=== PATIENT | male | born 1965 | race Caucasian/White ===

== ENCOUNTER 2018-01-24 11:51 | Observation (INO) | payer MEDICAID, OTHER ==
[2018-01-24 12:28] LABS: ADD MAN DIFF? NO
[2018-01-24 12:29] LABS: BASOPHILS % 0.8 % (0.0-2.0); EOSINOPHILS # 0.2 10^3/ul (0.0-0.5); EOSINOPHILS % 4.6 % (0.0-7.0); HEMATOCRIT 36.6 % (42.0-52.0); HEMOGLOBIN 11.8 g/dl (14.0-18.0); MEAN CORPUSCULAR HEMOGLOBIN 25.7 pg (29.0-33.0); MEAN CORPUSCULAR HGB CONC 32.2 g/dl (32.0-37.0); MEAN CORPUSCULAR VOLUME 79.6 fl (82.0-101.0); MEAN PLATELET VOLUME 10.4 fl (7.4-10.4); MONOCYTE # 0.6 10^3/ul (0.3-0.9); MONOCYTES % 11.1 % (0.0-11.0); NEUTROPHIL # 3.4 10^3/ul (1.6-7.5); NEUTROPHILS % 64.3 % (39.0-77.0); PLATELET COUNT 141 10^3/UL (140-415); RED CELL DISTRIBUTION WIDTH 17.4 % (11.5-14.5)
[2018-01-24 12:29] LABS: WHITE BLOOD COUNT 5.2 10^3/ul (4.8-10.8)
[2018-01-24 12:49] LABS: ANION GAP 15 (8-16); BLOOD UREA NITROGEN 14 mg/dl (7-20); CALCIUM 8.9 mg/dl (8.4-10.2); CARBON DIOXIDE 27 mmol/L (21-31); CHLORIDE 105 mmol/L (97-110); CREATININE 0.66 mg/dl (0.61-1.24); GLUCOSE 279 mg/dl (70-220); POTASSIUM 3.4 mmol/L (3.5-5.1); SODIUM 144 mmol/L (135-144)
[2018-01-24 12:53] LABS: ETHANOL < 10.0 mg/dl
[2018-01-24 13:02] LABS: TROPONIN-I < 0.012 ng/ml (0.00-0.12)
[2018-01-24 13:07] LABS: INR 1.09; PROTIME 14.3 Sec (11.9-14.9); PT RATIO 1.1
[2018-01-24 13:08] LABS: PARTIAL THROMBOPLASTIN TIME 30.9 Sec (25.0-35.0)
[2018-01-24] MEDS ORDERED: DOCUSATE SODIUM 100 MG CAP PO (13:30)
[2018-01-24] MEDS ORDERED: ACETAMINOPHEN 325 MG TAB PO (13:30)
[2018-01-24] MEDS ORDERED: NACL 0.9% 3 ML SYG IV (13:30)
[2018-01-24] MEDS ORDERED: ONDANSETRON 4 MG INJ IV (13:30)
[2018-01-24] MEDS ORDERED: DEXTROSE 50% 50 ML SYRINGE IV ×2 (14:00)
[2018-01-24] MEDS ORDERED: GLUCOSE GEL 15 GRAM TUBE PO ×2 (14:00)
[2018-01-24] MEDS ORDERED: GLUCOSE GEL 15 GRAM TUBE BUCCAL (14:00)
[2018-01-24] MEDS ORDERED: GLUCAGON 1 MG INJ IM (14:00)
[2018-01-24 14:06] LABS: HEMOGLOBIN A1C 9.6 % (0-5.9)
[2018-01-24 15:12] LABS: CANNABINOIDS Negative (NEGATIVE)
[2018-01-24] MEDS: POTASSIUM CHLORIDE (SR) 20 MEQ TAB PO (15:24)
[2018-01-24 15:29] LABS: AMPHETAMINE/METHAMPHETAMINE Positive (NEGATIVE); BARBITURATES Negative (NEGATIVE); BENZODIAZEPINES Negative (NEGATIVE); COCAINE Negative (NEGATIVE); OPIATES Negative (NEGATIVE)
[2018-01-24 16:43] LABS: IRON 30 ug/dl (35-150)
[2018-01-24 16:53] LABS: % IRON SATURATION 8 % SAT (22-52); TOTAL IRON BINDING CAPACITY 358 ug/dl (241-421)
[2018-01-24] MEDS: INSULIN ASPART [NOVOLOG] 3 ML PEN SC ×3 (18:05→23:00)
[2018-01-24] MEDS: PROPRANOLOL 10 MG TAB PO ×2 (21:00→22:58)
[2018-01-25 07:36] LABS: ADD MAN DIFF? NO
[2018-01-25 07:39] LABS: WHITE BLOOD COUNT 6.2 10^3/ul (4.8-10.8)
[2018-01-25 07:39] LABS: BASOPHIL # 0.1 10^3/ul (0.0-0.1); BASOPHILS % 0.8 % (0.0-2.0); EOSINOPHILS # 0.3 10^3/ul (0.0-0.5); EOSINOPHILS % 5.1 % (0.0-7.0); HEMATOCRIT 37.8 % (42.0-52.0); LYMPHOCYTES # 1.1 10^3/ul (0.8-2.9); LYMPHOCYTES % 16.9 % (15.0-51.0); MEAN CORPUSCULAR HEMOGLOBIN 25.4 pg (29.0-33.0); MEAN CORPUSCULAR HGB CONC 31.7 g/dl (32.0-37.0); MEAN CORPUSCULAR VOLUME 79.9 fl (82.0-101.0); MEAN PLATELET VOLUME 10.4 fl (7.4-10.4); MONOCYTE # 0.5 10^3/ul (0.3-0.9); MONOCYTES % 8.5 % (0.0-11.0); NEUTROPHIL # 4.2 10^3/ul (1.6-7.5); NEUTROPHILS % 68.1 % (39.0-77.0); PLATELET COUNT 141 10^3/UL (140-415); RED BLOOD COUNT 4.73 10^6/ul (4.70-6.10); RED CELL DISTRIBUTION WIDTH 17.2 % (11.5-14.5)
[2018-01-25] MEDS: INSULIN ASPART [NOVOLOG] 3 ML PEN SC ×4 (08:00→21:00)
[2018-01-25 08:03] LABS: ANION GAP 14 (8-16); BLOOD UREA NITROGEN 14 mg/dl (7-20); CALCIUM 8.5 mg/dl (8.4-10.2); CARBON DIOXIDE 24 mmol/L (21-31); CHLORIDE 107 mmol/L (97-110); CREATININE 0.68 mg/dl (0.61-1.24); GLUCOSE 221 mg/dl (70-220); MAGNESIUM 1.9 mg/dl (1.7-2.5); POTASSIUM 3.8 mmol/L (3.5-5.1); SODIUM 141 mmol/L (135-144)
[2018-01-25] MEDS: PROPRANOLOL 10 MG TAB PO ×2 (08:55→20:39)
[2018-01-25] MEDS: FERROUS SULFATE (EC) 325 MG TAB PO (17:51)
[2018-01-26] MEDS: INSULIN ASPART [NOVOLOG] 3 ML PEN SC ×2 (07:58→12:00)
[2018-01-26] MEDS: PROPRANOLOL 10 MG TAB PO (08:26)
[2018-01-26] MEDS: FERROUS SULFATE (EC) 325 MG TAB PO (08:26)
== END 2018-01-26 15:30 | disposition home or self-care (01) ==
LOC: E/R 11:51 → MS4 13:15
DX: R55 Syncope and collapse (principal); E87.6 Hypokalemia; D64.9 Anemia, unspecified; I10 Essential (primary) hypertension; E11.65 Type 2 diabetes mellitus with hyperglycemia; Z79.84 Long term (current) use of oral hypoglycemic drugs
CPT/HCPCS: 36415; 70450; 71045; 72125; 80048; 80306; 80307; 82962; 83036; 83540; 83735; 84443; 84484; 85025; 85610; 85730; 93005; 93306; 93880; 97161; 97165; 99285-25; G0378

== ENCOUNTER 2018-07-30 22:16 | Inpatient (IN) | payer MEDICAID ==
[2018-07-31] MEDS: TRIMETHOPRIM/SULFAMETHOX (DS) TAB PO (00:53)
[2018-07-31] MEDS: CEPHALEXIN 500 MG CAP PO (00:53)
[2018-07-31] MEDS: IBUPROFEN 600 MG TAB PO (00:53)
[2018-07-31] MEDS: CEFTRIAXONE 1 GM/50 ML (PMX) 50 ML IVPB (02:01)
[2018-07-31 02:02] LABS: ADD MAN DIFF? NO
[2018-07-31 02:05] LABS: BASOPHILS % 0.5 % (0.0-2.0); EOSINOPHILS # 0.3 10^3/ul (0.0-0.5); EOSINOPHILS % 3.9 % (0.0-7.0); HEMATOCRIT 28.9 % (42.0-52.0); LYMPHOCYTES # 1.3 10^3/ul (0.8-2.9); LYMPHOCYTES % 19.9 % (15.0-51.0); MEAN CORPUSCULAR HEMOGLOBIN 23.3 pg (29.0-33.0); MEAN CORPUSCULAR HGB CONC 31.1 g/dl (32.0-37.0); MEAN CORPUSCULAR VOLUME 74.7 fl (82.0-101.0); MEAN PLATELET VOLUME 11.6 fl (7.4-10.4); MONOCYTE # 0.9 10^3/ul (0.3-0.9); MONOCYTES % 14.3 % (0.0-11.0); NEUTROPHIL # 3.9 10^3/ul (1.6-7.5); NEUTROPHILS % 61.2 % (39.0-77.0); PLATELET COUNT 132 10^3/UL (140-415); RED BLOOD COUNT 3.87 10^6/ul (4.70-6.10); RED CELL DISTRIBUTION WIDTH 15.3 % (11.5-14.5)
[2018-07-31 02:05] LABS: WHITE BLOOD COUNT 6.4 10^3/ul (4.8-10.8)
[2018-07-31 02:34] LABS: ALANINE AMINOTRANSFERASE 78 IU/L (13-69); ALBUMIN 2.8 g/dl (3.3-4.9); ALBUMIN/GLOBULIN RATIO 0.77; ALKALINE PHOSPHATASE 74 IU/L (42-121); ANION GAP 6 (5-13); ASPARTATE AMINO TRANSFERASE 46 IU/L (15-46); BILIRUBIN,INDIRECT 0.8 mg/dl (0-1.1); BILIRUBIN,TOTAL 0.8 mg/dl (0.2-1.3); BLOOD UREA NITROGEN 12 mg/dl (7-20); CARBON DIOXIDE 26 mmol/L (21-31); CHLORIDE 104 mmol/L (97-110); CREATININE 0.69 mg/dl (0.61-1.24); GLUCOSE 282 mg/dl (70-220); POTASSIUM 3.2 mmol/L (3.5-5.1); SODIUM 136 mmol/L (135-144); TOTAL PROTEIN 6.4 g/dl (6.1-8.1)
[2018-07-31] MEDS: VANCOMYCIN 1 GM (PMX) 250 ML IVPB (02:36)
[2018-07-31] MEDS ORDERED: ONDANSETRON 4 MG INJ IV (06:30)
[2018-07-31] MEDS ORDERED: ACETAMINOPHEN 325 MG TAB PO (06:30)
[2018-07-31] MEDS ORDERED: NACL 0.9% 3 ML SYG IV (06:30)
[2018-07-31] MEDS ORDERED: VANCOMYCIN IV PER PHARMACY XX (06:30)
[2018-07-31] MEDS: POTASSIUM CHLORIDE (SR) 20 MEQ TAB PO (06:43)
[2018-07-31] MEDS: INSULIN ASPART [NOVOLOG] 3 ML PEN SC ×4 (08:00→21:00)
[2018-07-31] MEDS: PROPRANOLOL 10 MG TAB PO ×2 (08:34→21:47)
[2018-07-31] MEDS: FERROUS SULFATE (EC) 325 MG TAB PO (08:34)
[2018-07-31] MEDS: metFORMIN 500 MG TAB PO ×2 (08:34→17:31)
[2018-07-31] MEDS: CEFEPIME 1GM/50 ML (PMX) 50 ML IVPB (08:34)
[2018-07-31] MEDS: HEPARIN SODIUM 5,000 UNIT/ML VIAL SC ×2 (08:36→21:57)
[2018-07-31] MEDS ORDERED: GLUCAGON 1 MG INJ IM (14:30)
[2018-07-31] MEDS ORDERED: DEXTROSE 50% 50 ML SYRINGE IV ×2 (14:30)
[2018-07-31] MEDS ORDERED: GLUCOSE GEL 15 GRAM TUBE BUCCAL (14:30)
[2018-07-31] MEDS ORDERED: GLUCOSE GEL 15 GRAM TUBE PO ×2 (14:30)
[2018-07-31] MEDS ORDERED: VANCOMYCIN 1.25 GM in SOD CHLORIDE 0.9% 250 ML IVPB (15:00)
[2018-07-31] MEDS: IVERMECTIN 3 MG TAB PO (15:21)
[2018-07-31] MEDS: traMADol 50 MG TAB PO (21:50)
[2018-08-01] MEDS: ACCU-CHEK XX (02:00)
[2018-08-01 06:57] LABS: ADD MAN DIFF? NO
[2018-08-01 07:02] LABS: WHITE BLOOD COUNT 5.5 10^3/ul (4.8-10.8)
[2018-08-01 07:02] LABS: BASOPHIL # 0.1 10^3/ul (0.0-0.1); BASOPHILS % 0.9 % (0.0-2.0); EOSINOPHILS # 0.4 10^3/ul (0.0-0.5); HEMATOCRIT 31.7 % (42.0-52.0); HEMOGLOBIN 9.9 g/dl (14.0-18.0); LYMPHOCYTES # 1.4 10^3/ul (0.8-2.9); LYMPHOCYTES % 25.4 % (15.0-51.0); MEAN CORPUSCULAR HEMOGLOBIN 23.6 pg (29.0-33.0); MEAN CORPUSCULAR HGB CONC 31.2 g/dl (32.0-37.0); MEAN CORPUSCULAR VOLUME 75.5 fl (82.0-101.0); MEAN PLATELET VOLUME 9.8 fl (7.4-10.4); MONOCYTE # 0.6 10^3/ul (0.3-0.9); MONOCYTES % 11.3 % (0.0-11.0); NEUTROPHILS % 54.2 % (39.0-77.0); PLATELET COUNT 132 10^3/UL (140-415); RED CELL DISTRIBUTION WIDTH 15.3 % (11.5-14.5)
[2018-08-01 07:32] LABS: ALANINE AMINOTRANSFERASE 61 IU/L (13-69); ALBUMIN 3.1 g/dl (3.3-4.9); ALBUMIN/GLOBULIN RATIO 0.83; ALKALINE PHOSPHATASE 88 IU/L (42-121); ANION GAP 9 (5-13); ASPARTATE AMINO TRANSFERASE 36 IU/L (15-46); BILIRUBIN,INDIRECT 0.4 mg/dl (0-1.1); BILIRUBIN,TOTAL 0.4 mg/dl (0.2-1.3); BLOOD UREA NITROGEN 12 mg/dl (7-20); CALCIUM 7.8 mg/dl (8.4-10.2); CARBON DIOXIDE 24 mmol/L (21-31); CHLORIDE 104 mmol/L (97-110); CREATININE 0.62 mg/dl (0.61-1.24); GLUCOSE 216 mg/dl (70-220); MAGNESIUM 1.9 mg/dl (1.7-2.5); PHOSPHORUS 2.9 mg/dl (2.5-4.9); SODIUM 137 mmol/L (135-144); TOTAL PROTEIN 6.8 g/dl (6.1-8.1)
[2018-08-01 07:35] LABS: POTASSIUM 3.6 mmol/L (3.5-5.1)
[2018-08-01 07:59] LABS: FERRITIN 9.3 ng/ml (11.1-264.0)
[2018-08-01] MEDS: FERROUS SULFATE (EC) 325 MG TAB PO (08:34)
[2018-08-01] MEDS: metFORMIN 500 MG TAB PO (08:34)
[2018-08-01] MEDS: HEPARIN SODIUM 5,000 UNIT/ML VIAL SC (08:35)
[2018-08-01] MEDS: PROPRANOLOL 10 MG TAB PO (08:35)
[2018-08-01] MEDS: INSULIN ASPART [NOVOLOG] 3 ML PEN SC ×2 (08:37→10:34)
== END 2018-08-01 16:12 | disposition home or self-care (01) | DRG 607 ==
LOC: FTE 22:16 → PP2 07-31 02:37
PROC: 0H9FXZZ Drainage of Right Hand Skin, External Approach (ICD-10-PCS; principal; 2018-07-31)
DX: B86 Scabies (principal); L02.511 Cutaneous abscess of right hand
CPT/HCPCS: 80053; 82728; 82962; 83735; 84100; 85025; 87040; 87070